=== PATIENT | male | born 2000 | race Caucasian/White ===

== ENCOUNTER 2023-06-23 09:01 | Emergency (ER) | payer MEDICAID ==
[2023-06-23] MEDS ORDERED: Sodium Chloride 0.9% 10 ML Syringe FLUSH PRN (09:23)
[2023-06-23] MEDS ORDERED: Sodium Chloride 0.9% 1,000 ML IV ONE (09:32)
[2023-06-23 09:49] LABS: BASOPHILS ABSOLUTE AUTO 0.04 K/uL (0.00-0.10); EOSINOPHILS ABSOLUTE AUTO 0.06 K/uL (0.00-0.40); EOSINOPHILS PERCENT AUTO 1.5 % (0.0-5.4); HEMATOCRIT 46.4 % (38.4-49.7); HEMOGLOBIN 16.6 g/dL (12.9-16.9); IMMATURE GRAN PERCENT AUTO 0.3 % (0.0-0.7); LYMPHOCYTES ABSOLUTE AUTO 1.03 K/uL (0.8-3.3); LYMPHOCYTES PERCENT AUTO 26.2 % (11.4-47.7); MEAN CORPUSCULAR HEMOGLOBIN 30.9 pg (31.6-35.5); MEAN CORPUSCULAR HGB CONC 35.8 g/dL (31.6-35.5); MEAN CORPUSCULAR VOLUME 86.4 fL (81.4-99.0); MONOCYTES ABSOLUTE AUTO 0.35 K/uL (0.20-0.90); MONOCYTES PERCENT AUTO 8.9 % (3.3-12.6); NEUTROPHILS ABSOLUTE AUTO 2.44 K/uL (1.0-7.6); NEUTROPHILS PERCENT AUTO 62.1 % (40.0-78.1); PLATELET COUNT,PLT 211 K/uL (130-375); RED BLOOD CELL COUNT 5.37 M/uL (4.14-5.76); WHITE BLOOD CELL COUNT,WBC 3.9 K/uL (3.2-11.0)
[2023-06-23 09:51] LABS: BASE EXCESS VENOUS 0.6 mm/L; METHEMOGLOBIN 1.3 %; O2 SATURATION VENOUS 88.6; OXYHEMOGLOBIN 83.9 %; PCO2 VENOUS 36.9 mm/Hg; PH,VENOUS 7.429 (7.350-7.450); PO2 VENOUS 54.2 mm/Hg; TOTAL HEMOGLOBIN 17.1 g/dL (13.5-18.0)
[2023-06-23 09:52] LABS: IMMATURE GRAN ABSOLUTE AUTO 0.01 K/uL (0.00-0.23)
[2023-06-23] MEDS ORDERED: Sodium Chloride 0.9% 10 ML Syringe FLUSH ONE (10:12)
[2023-06-23] MEDS ORDERED: Iopamidol 755 Mg/ML 100 ML Bottle IV ONE (10:12)
[2023-06-23] MEDS ORDERED: Sodium Chloride 0.9% 100 ML IV ONE (10:12)
[2023-06-23 10:14] LABS: ANION GAP 11.8 mmol/L (5.0-14.0); CALCIUM 8.7 mg/dL (8.5-10.1); CREATININE 0.9 mg/dL (0.8-1.3); EST CRCL DRUG DOSING (CG) 118.15 mL/min
[2023-06-23 10:29] LABS: C-REACTIVE PROTEIN < 0.50 mg/dL (<0.50); TROPONIN I HIGH SENSITIVITY 15.9 pg/mL (<=60.3)
== END 2023-06-23 11:59 | disposition home or self-care (01) ==
LOC: JP.ED 09:01
DX: R55 Syncope and collapse (principal); J45.909 Unspecified asthma, uncomplicated
CPT/HCPCS: 36415; 70450; 70496; 70498; 80048; 82803; 82947; 83605; 84484; 85025; 85379; 86140; 93005; 96360; 99285; J7030

== ENCOUNTER 2023-09-04 17:04 | Emergency (ER) | payer OTHER, MEDICAID ==
[2023-09-04] MEDS: Bacitracin Oint 1 GM U/D Packet TOP ONE (21:10)
[2023-09-04] MEDS: Lidocaine 1% with EPINEPHrine 1:100,000 50 ML MDV INFILT STA (21:10)
== END 2023-09-04 22:06 | disposition home or self-care (01) ==
LOC: JP.ED 17:04
DX: S61.411A Laceration without foreign body of right hand, initial encounter (principal); W23.0XXA Caught, crushed, jammed, or pinched between moving objects, initial encounter
CPT/HCPCS: 12001; 73130-26-RT; 73130-RT; 99283